=== PATIENT | female | born 1985 | race Caucasian/White ===

== ENCOUNTER → 2017-02-23 | Outpatient (CLI) | payer BC | LOC: CIMAGING 16:01 | DX: Z34.91 Encounter for supervision of normal pregnancy, unspecified, first trimester (principal); Z3A.10 10 weeks gestation of pregnancy ==

== ENCOUNTER → 2017-04-26 | Outpatient (CLI) | payer BC | LOC: FIMAGING 10:33 | PROVIDERS: ATTEND Advanced Practice Midwife | DX: O99.282 Endocrine, nutritional and metabolic diseases complicating pregnancy, second trimester (principal); E03.9 Hypothyroidism, unspecified; Z79.890 Hormone replacement therapy; Z3A.19 19 weeks gestation of pregnancy ==